=== PATIENT | male | born 1935 | race African-American/Black ===

== ENCOUNTER 2016-10-30 05:24 | Day surgery (SDC) | payer MEDICARE, BC ==
--- NOTE | 2016-10-27 16:45 | Pre-op HX & Phy Repo 2 SIG ---
DATE OF ADMISSION: 10/30/2016 PREOPERATIVE DIAGNOSIS: Macular hole, left eye. 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 He is maintained on oral medications for his diabetes. He had cataract surgery done on the right eye in January of 2013 and on the left in May 2013. He has had bilateral capsulotomies. 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 During the course of these injections, he has been seen to have a recurrent macular hole that spontaneously closes and then reopens, but at this stage, he has been open for the last several months with an approximate day's diameter of 300 microns. For this reason, he is admitted for vitrectomy and gas. PHYSICAL EXAMINATION: Best vision at the time of admission was 20/60, -2 on the right eye and 20/100 on the left with pressures of 18 and 17. The anterior segments showed no rubeosis. There were lens implants in either eye. Tube shots were noted bilaterally peripheral blood. Fundus examination showed cups of 0.7 and 0.55. 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 Widespread laser was seen in the periphery. General physical examination was done by the patient's primary physician. ASSESSMENT: Stage IV macular hole, left eye. PLAN: The plan is to perform a pars plana vitrectomy with ILM and membrane peeling as well as gas-fluid exchange on the left. Additional laser will be given as needed. The risks and benefits of surgery gone over with the patient with potential for infection, retinal detachment, failure of the hole to close, glaucoma, the late possibility of loss of the eye. The risk of anesthesia was discussed. The patient understands and consents to the surgery, which will be performed on Sunday. Michael Tatum M.D. DR: MIKE JOB#: [id number] CC:
[~2016-10-30] VITALS: Ht 175.3 cm; Wt 79.8 kg
[2016-10-30] VITALS (9 sets, daily range): BP systolic 95–158; BP diastolic 51–81
[~2016-10-30 05:24] MED LIST: ARTIFICIAL TEAR15 ML BOTH EYES; ATORVASTATIN CA20 MG ORAL; CITALOPRAM HBR20 M1 ORAL; DICLOFENAC SOD2.5 ML BOTH EYES; ERYTHROMYCIN3.5 GM BOTH EYES; FLONASE ALLERG9.9 ML NS; GABAPENTIN300 MG ORAL; LATANOPROST2.5 ML BOTH EYES; METFORMIN HCL500 M1 ORAL; NAMENDA10 MG ORAL; Pred Forte 1% Opth Susp 1ml LEFT EYE ONE; TIMOPTIC 0.5%1 EACH BOTH EYES; XANAX0.25 MG ORAL
[2016-10-30] MEDS ORDERED: Vigamox Opth Soln ONE (05:29)
[2016-10-30] MEDS ORDERED: Cyclopentolate 1% Opth Sol ONE (05:29)
[2016-10-30] MEDS ORDERED: Phenylephrine 2.5% Op Soln ONE (05:29)
[2016-10-30] MEDS ORDERED: Flurbiprofen 0.03% Opth Sol 2.5ml ONE (05:29)
[2016-10-30] MEDS: Cyclopentolate 1% Opth Sol LEFT EYE SCH ×3 (06:01→06:29)
[2016-10-30] MEDS: Vigamox Opth Soln LEFT EYE SCH ×3 (06:01→06:29)
[2016-10-30] MEDS: Phenylephrine 2.5% Op Soln LEFT EYE SCH ×3 (06:01→06:29)
[2016-10-30] MEDS: Flurbiprofen 0.03% Opth Sol 2.5ml LEFT EYE SCH ×3 (06:01→06:29)
--- NOTE | 2016-10-30 06:48 | Pre-Procedure Note/Attestation ---
Pre-Procedure Note/Attestation Complete Prior to Procedure Planned Procedure: left Procedure Narrative: PPV, ICG assisted membrane peel, endolaser, gas-fluid exchange L eye Indications for Procedure Pre-Operative Diagnosis: Macular hole L eye Attestation I attest that I discussed the nature of the procedure; its benefits; risks and complications; and alternatives (and the risks and benefits of such alternatives ), prior to the procedure, with the patient (or the patient's legal sales account representative). I attest that, if there was a reasonable possibility of needing a blood transfusion, the patient (or the patient's legal sales account representative) was given the [facility] standardized written summary, pursuant to the [place] Blood Safety Act ([place] Health and Safety Code # 1645, as amended). I attest that I re-evaluated the patient just prior to the surgery and that there has been no change in the patient's H&P, except as documented below: MARISA CONNORS Oct 30, 2016 06:48
[2016-10-30] MEDS ORDERED: Kenalog-40 1ml Vial ONE (06:56)
[2016-10-30] MEDS ORDERED: BSS 500ml btl ONE (06:56)
[2016-10-30] MEDS ORDERED: Pred Forte 1% Opth Susp 1ml ONE (06:56)
[2016-10-30] MEDS ORDERED: Tetracaine 0.5% Opth Soln ONE (06:57)
[2016-10-30] MEDS ORDERED: Maxitrol Opth Oint 3.5gm ONE (06:57)
[2016-10-30] MEDS ORDERED: Dexamethasone 4mg/ml vial ONE (06:57)
[2016-10-30] MEDS ORDERED: EPINEPHrine 1mg/1ml Amp ONE (06:58)
[2016-10-30] MEDS ORDERED: Povidone-Iodine 5% opth solution ONE (06:58)
[2016-10-30] MEDS ORDERED: Kenalog-10 5ml Inj ONE (06:58)
[2016-10-30] MEDS ORDERED: Bupivacaine 0.75% 30ml vial INJ ONE (06:59)
[2016-10-30] MEDS ORDERED: Healon Duet Dual Pack ONE (06:59)
[2016-10-30] MEDS ORDERED: Lidocaine 2% MPF 5ml Vial INJ ONE ×2 (06:59→07:07)
[2016-10-30] MEDS ORDERED: Indocyanine Green 25mg Inj INJ ONE (07:30)
[2016-10-30] MEDS ORDERED: Propofol 10mg/ml 20ml IV ONE (07:30)
[2016-10-30] MEDS ORDERED: NS Irrig 1000ml ONE (07:30)
[2016-10-30] MEDS ORDERED: fentaNYL 100 mcg/2 mL IV ONE (07:30)
[2016-10-30] MEDS ORDERED: LR 1000ml ONE (07:30)
[2016-10-30] MEDS ORDERED: Sterile Water Irrig 1000ml IRRIG ONE (07:30)
[2016-10-30] MEDS ORDERED: Midazolam 2mg/2ml Inj ONE (07:30)
[2016-10-30] MEDS ORDERED: BSS 15ml BTL ONE (08:05)
[2016-10-30] MEDS ORDERED: LR 1000ml 1,000 ML IVLG SCH (08:17)
--- NOTE | 2016-10-30 08:17 | Anethesia Preoperative Eval ---
Anesthesia Pre-op PMH/ROS General Date of Evaluation: Oct 30, 2016 Time of Evaluation: 07:12 Anesthesiologist: Elva ASA Score: ASA 3 Mallampati Score Class I : Soft palate, uvula, fauces, pillars visible Class II: Soft palate, uvula, fauces visible Class III: Soft palate, base of uvula visible Class IV: Only hard plate visible Mallampati Classification: Class II Surgeon: Deepti Diagnosis: Diabetic retinopoathy Surgical Procedure: L eye PPV Anesthesia History: none Family History: no anesthesia problems Allergies: Coded Allergies: No Known Allergies (Unverified , 10/27/16) Medications: see eMAR Past Medical History Cardiovascular: Reports: HTN - mild, Denies: CAD, [place], arrhythmia, other, valve dz Pulmonary: Denies: COPD, NASIR, asthma, other Gastrointestinal/Genitourinary: 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 Exam Physician Exam Last Vital Signs Date Time Temp Pulse Resp B/P Pulse Ox O2 Delivery O2 Flow Rate FiO2 10/30/16 06:05 97.9 62 20 158/75 96 Room Air Constitutional: NAD Neurologic: other - unable to obtaine Cardiovascular: RRR, no M/R/G Respiratory: CTA Gastrointestinal: S/NT/ND Airway Exam Mallampati Score: Class II MO: limited Neck: stiff ROM: limited Teeth: missing Dentures: lower, upper Anesthesia Pre-op A/P Labs see chart Studies Pre-op Studies: EKG - NSR Risk Assessment & Plan Assessment: ASA 3 Plan: GA with LMA surgeon request Status Change Before Surgery: No Pre-Antibiotics Drug: none YUE CORADO M.D. Oct 30, 2016 08:17
[2016-10-30] MEDS ORDERED: DiphenhydrAMINE 50mg/ml Inj IVP PRN (08:30)
[2016-10-30] MEDS ORDERED: fentaNYL 100 mcg/2 mL IV PRN (08:30)
--- NOTE | 2016-10-30 09:03 | Brief Operative Note ---
Immediate Post Operative Note Operative Note Chief Complaint: central clouding in vision L eye Pre-op Diagnosis: Macular hole L eye Procedure: PPV, ICG assisted membrane peel, Endolaser 602 spots, gas/fluid exchange 24% SF- 6 L eye Post-op Diagnosis: same as pre-op Surgeon: madai Zyglo Inspector: rocky Anesthesiologist: Elva Anesthesia: general Complications: none Condition: stable Estimated Blood Loss: none Drains: none Implant(s) used?: No MARISA CONNORS Oct 30, 2016 09:03
--- NOTE | 2016-10-30 09:15 | Immediate Post-Op Evaluation ---
Immediate Post-Op Evalulation Immediate Post-Op Evalulation Procedure: L eye PPV membrane peel, laser treatment, fluid to gas exchange Date of Evaluation: Oct 30, 2016 Time of Evaluation: 09:14 IV Fluids: 800 Blood Products: none Estimated Blood Loss: min Urinary Output: none Blood Pressure Systolic: 104 Blood Pressure Diastolic: 56 Pulse Rate: 58 Respiratory Rate: 20 O2 Sat by Pulse Oximetry: 99 Temperature (Fahrenheit): 97.6 Pain Score (1-10): 1 Nausea: No Vomiting: No Complications none Patient Status: reacts, patent, none Hydration Status: adequate YUE CORADO M.D. Oct 30, 2016 09:15
--- NOTE | 2016-10-30 10:17 | 48 Hour Post Anesthesia Eval ---
Post Anesthesia Evaluation Procedure: L eye PPV membrane peel, laser treatment, fluid to gas exchange Date of Evaluation: Oct 30, 2016 Time of Evaluation: 10:16 Blood Pressure Systolic: 145 0: 78 Pulse Rate: 56 Respiratory Rate: 18 Temperature (Fahrenheit): 97.9 O2 Sat by Pulse Oximetry: 99 Airway: patent Nausea: No Vomiting: No Pain Intensity: 2 Hydration Status: adequate Cardiopulmonary Status: stable Mental Status/LOC: patient returned to baseline Follow-up Care/Observations: n/a Post-Anesthesia Complications: none Follow-up care needed: ready to discharge YUE CORADO M.D. Oct 30, 2016 10:17
[2016-10-30] MEDS ORDERED: Norco 5mg/325mg tab ORAL PRN (15:01)
--- NOTE | 2016-10-30 18:45 | Operative Note - Dictated ---
DATE OF OPERATION: 10/30/2016 PREOPERATIVE DIAGNOSIS: Macular hole, left eye. POSTOPERATIVE DIAGNOSIS: Macular hole, left eye. PROCEDURES: 1. Pars plana vitrectomy. 2. ICG assisted membrane peel. 3. Gas fluid exchange. 4. Endolaser, left eye. SURGEON: Michael Tatum M.D. LIQUOR BRIDGE OPERATOR: None. ANESTHESIA: LMA general. ANESTHESIOLOGIST: Kleber Stevenson M.D. JUSTIFICATION FOR SURGERY: This 80-year-old gentleman with a long history of diabetic retinopathy developed a full thickness macular hole. BRIEF NOTE: The patient brought to the operative room, placed on operating room table in supine position. After a time-out was performed and agreed upon by the staff and initial monitoring and LMA anesthesia secured by Dr. Stevenson, retrobulbar and Van Lint blocks were given in the standard way to limit postoperative pain. The left eye was then prepped and draped in the normal manner. A lid speculum inserted. Using a 23-gauge trocar system, cannulas were placed in all except the inferotemporal quadrant. Infusion secured inferonasally to avoid a pre-existing glaucoma filtering site. Vitrectomy was begun posterior to the lens. The posterior capsule was slightly enlarged and a central core vitrectomy was done followed by peripheral vitrectomy leaving a small vitreous skirt. A posterior viewing lens was then inserted and the macular hole visualized. ICG dye diluted in 5% dextrose was then placed on the surface of the retina and left for roughly 45 seconds. A total of roughly 3 drops were used. With the ILM now stained, the intra-ocular forceps were used to engage it at the site superior and slightly temporal to the macula. A Tan senior operations analyst was then used to elevate the edges of the ILM and using intraocular forceps, the membrane was meticulously removed in an area roughly 2 disc diameters in size from the posterior pole. No problems were encountered. The endolaser was brought into the eye and a power of 0.3 llamas duration 0.2 seconds, a total of 602 lesions were applied in the periphery where ischemic retina was noted and treatment was light. An air-fluid exchange was then performed followed by a gas-gas exchange using a 24% mixture of SF6. The eye was left with roughly a 95% fill. The cannulas were removed and each sclerotomy closed with 8-0 Vicryl suture using a single throw to ease later removal. Subconjunctival Decadron and gentamicin were then injected and Maxitrol and atropine ointments were instilled. The eye was patched and shielded and the patient taken to recovery in excellent condition. There were no complications. Michael Tatum M.D. DR: ANGIE JOB#: [id number] CC: Michael Tatum M.D.; Fax#: [phone] Lema M.D. ; Fax#: [phone]
== END 2016-10-30 11:50 | disposition home or self-care (01) ==
LOC: SUR 05:24
DX: H35.342 Macular cyst, hole, or pseudohole, left eye (principal); E11.3512 Type 2 diabetes mellitus with proliferative diabetic retinopathy with macular edema, left eye; Z79.84 Long term (current) use of oral hypoglycemic drugs; H40.9 Unspecified glaucoma; I12.9 Hypertensive chronic kidney disease with stage 1 through stage 4 chronic kidney disease, or unspecified chronic kidney disease; E11.22 Type 2 diabetes mellitus with diabetic chronic kidney disease; N18.9 Chronic kidney disease, unspecified; M19.90 Unspecified osteoarthritis, unspecified site; G30.1 Alzheimer's disease with late onset; F02.81 Dementia in other diseases classified elsewhere, unspecified severity, with behavioral disturbance; N40.0 Benign prostatic hyperplasia without lower urinary tract symptoms; F32.9 Major depressive disorder, single episode, unspecified; F41.9 Anxiety disorder, unspecified; N52.9 Male erectile dysfunction, unspecified; E11.40 Type 2 diabetes mellitus with diabetic neuropathy, unspecified; E11.59 Type 2 diabetes mellitus with other circulatory complications; D64.9 Anemia, unspecified; Z87.891 Personal history of nicotine dependence; Z87.442 Personal history of urinary calculi
CPT/HCPCS: 67042; 82962; J0171; J1100; J2250; J2704; J3010; J3301; J3470; J3490; J7120; 94003; 94150